=== PATIENT | female | born 2000 | race Caucasian/White ===

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

== ENCOUNTER 2022-01-03 16:13 | Outpatient (CLI) | payer BC, SELFPAY ==
[2022-01-03 16:14] VITALS: BP 116/68; PULSE 94; RESP 18; TEMP 37.2; O2SAT 98; BMI 27.3
[2022-01-03 16:38] VITALS: BMI 27.3
[2022-01-03] MEDS: Rabies Vaccine,Human Diploid 2.5 UNITS Vial IM (16:59)
[2022-01-03 17:10] VITALS: BP 111/78; PULSE 74; RESP 14; TEMP 36.3; O2SAT 100
== END 2022-01-03 17:31 | disposition home or self-care (01) ==
LOC: ED 16:51 → EDREF 17:30
PROVIDERS: PCP Physician Assistant
DX: Z20.3 Contact with and (suspected) exposure to rabies (principal); Z23 Encounter for immunization
CPT/HCPCS: 90675; 96372

== ENCOUNTER 2022-01-10 12:35 | Outpatient (CLI) | payer BC, SELFPAY ==
[2022-01-10 12:37] VITALS: BP 117/79; PULSE 91; RESP 12; TEMP 35.7; O2SAT 97; BMI 27.9
[2022-01-10] MEDS: Rabies Vaccine,Human Diploid 2.5 UNITS Vial IM (12:58)
== END 2022-01-10 13:38 | disposition home or self-care (01) ==
LOC: ED 12:56 → EDREF 13:37
PROVIDERS: PCP Physician Assistant
DX: Z23 Encounter for immunization (principal)
CPT/HCPCS: 90675; 96372

== ENCOUNTER 2023-12-24 09:20 | Emergency (ER) | payer BC, SELFPAY ==
[2023-12-24 09:22] VITALS: BP 137/91; PULSE 78; RESP 14; TEMP 36.8; O2SAT 98; BMI 27.3
--- NOTE | 2023-12-24 09:41 | EDS_ITS ---
HPI History of Present Illness Chief Complaint: Meds Only Narrative Narrative: Chief complaint and HPI: Port flush. 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 Patient states that she had a PowerPort placed this summer for intermittent LR transfusions. She states that she originally lives in [place] and is currently at school in [place]. She states that she has been having issues getting her infusions secondary to the orders being placed from [place]. Patient states that she is supposed to get her PowerPort flushed every 30 days and that it is due for this. She does have a order on her phone to have her port flushed with heparin from Dr. Scott in [place]. Phone [phone]. However orders placed from 10/02/2023. Patient currently denies any other symptoms at this time. Review of systems: See HPI Medications: As listed on the chart Allergies: As listed on the chart PFSH: Per chart Vital signs: As listed on the chart. Reviewed. Physical exam: Gen: A&O x3, NAD Head: Normocephalic, atraumatic Eyes: No sclera icterus, conjunctiva clear ENT: Moist mucous membranes CV: RRR, no murmurs Resp: Lungs CTA BL, no w/r/c GI: Abd soft, non-distended, non-tender, no r/r/g Musc: Full ROM, no deformity Skin: Warm, dry Neuro: Alert, oriented, grossly intact, sensation intact Psych: Cooperative, appropriate mood and affect PFS PFSH Medical History Anxiety Depression Home Medications ?Medication ?Instructions ?Recorded ?Last Taken ?Type vortioxetine 10 mg tablet 30 mg PO DAILY 02/17/21 Unknown History (Trintellix) doxepin 10 mg capsule 10 mg PO DAILY 12/27/21 Unknown History norethindrone 1 mg-ethinyl 1 tab PO DAILY 12/27/21 Unknown History estradiol 20 mcg (24)-iron 75 mg (4) tablet (Blisovi 24 Fe) Allergy/AdvReac Type Severity Reaction Status Date / Time No Known Allergies Allergy Verified 12/24/23 09:21 Surgical History History of exploratory laparotomy Social History Smoking Status: Never smoker EXAM Physical Exam Const Vital Signs: 12/24/23 09:22 Temperature 98.3 F Temperature Source Temporal Pulse Rate 78 Respiratory Rate 14 Blood Pressure 137/91 H Blood Pressure Mean 106 Pulse Ox 98 Oxygen Delivery Method Room Air MDM MDM MDM Narrative Medical decision making narrative: 23-year-old female presents for port flush. She has an order from an [place] physician Dr. Scott but it was placed on 12/02/2023. Given that I am not familiar with this patient or this physician from [place] I did go ahead and call the number that was listed on the order. [phone]. I spoke with the staff there Brittani Felix she was able to look up the order. However she states that the port is not to be flushed by the emergency department. She states that the patient needs to have other means set up for port flush. They will contact the patient as well as advised me to have the patient call their office. They will make note of this. I did update the patient that I will not be flushing her port today. I did tell her that she needs to call the office. She confirmed understanding of the plan. Patient otherwise has no emergent complaints. Patient is stable to discharge. Impression: 1. Medical evaluation 2. Requesting flush of PowerPort Discharge Plan Triage Chief Complaint: Meds Only ED Provider: Alejandro Markham Dx/Rx/DC Orders Prescriptions: No Action Trintellix 10 mg Tablet 30 mg PO DAILY doxepin 10 mg capsule 10 mg PO DAILY Patient Comments: TAKE 1 CAPSULE BY MOUTH EVERYDAY AT BEDTIME Blisovi 24 Fe 1 mg-20 mcg (24)/75 mg (4) tablet 1 tab PO DAILY Patient Comments: TAKE 1 TABLET BY MOUTH EVERY DAY Primary Care Provider: Cassie Greer Referrals: Cassie Greer PA [Primary Care Provider] - Print Language: Korean
[2023-12-24 10:51] VITALS: BP 117/69; PULSE 98; RESP 16; O2SAT 97
[2023-12-24 10:57] VITALS: BP 117/69; BP 121/74; PULSE 100; PULSE 98; RESP 16; TEMP 36.2; O2SAT 97; O2SAT 98; BMI 27.3
--- NOTE | 2023-12-24 10:59 | ED.RN ---
Ale supervisor adult education called infusion to see how we can help this patient. Patient is very grateful and stated that she is done at the end of the semester and just needs it this time. Patient had gone to the dr at the [facility] that told her that they do not deal with ports. She called the infusion center and was told that they could not do anything because she has an order from a doctor in [place]. ED is not able to do anything due to the order being from [place]. Ale talked to Telma and they will talk to risk and see what they can do for the patient. Infusion will call the patient when they figure everything out.
== END 2023-12-24 11:04 | disposition home or self-care (01) ==
PROVIDERS: Emergency Provider Surgery; Visit Provider Surgery
DX: Z45.2 Encounter for adjustment and management of vascular access device (principal); Q79.60 Ehlers-Danlos syndrome, unspecified
CPT/HCPCS: 99281